=== PATIENT | female | born 1965 | race Caucasian/White ===

== ENCOUNTER 2018-09-28 19:17 | Emergency (ER) | payer OTHER ==
[2018-09-28 19:27] VITALS: BP 147/102; PULSE 81; TEMP 98.4; BMI 21.7
--- NOTE | 2018-09-28 19:30 | PDOC ---
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 Pt states she went to urgent care 3 days ago with normal lab results/urine test. Pt states she has never had these symptoms before, and there are no alleviating or exacerbating factors. Pt denies any recent fevers/chills, headache, vision changes, syncope, chest pain, palpitations, SOB, nausea/vomiting, hematuria, dysuria, vaginal bleeding or discharge, diarrhea/constipation, or leg swelling. Pt has 1 consistent partner () and is not concerned about STI testing. LMP 2 years ago Allergies: NKDA PCP: [facility] Social: Pt denies any cigarette, alcohol, or drug use. Pt denies any recent travel or sick contacts. Surgical: 2 C-sections Family: M-GMA with brain CA; father - prostate CA; no kidney stones in family that she is aware of 09/28/18 20:57 Past History - Travel Traveled outside of the country in the last 30 days: No Close contact w/someone who was outside of country & ill: No - Past Medical History Allergies/Adverse Reactions: Allergies Allergy/AdvReac Type Severity Reaction Status Date / Time aspirin AdvReac Intermediate Verified 09/28/18 19:22 Home Medications: Ambulatory Orders Ranitidine HCl [Zantac] 150 mg PO DAILY PRN 09/28/18 COPD: No GI Disorders: Yes (GERD) - Suicide/Smoking/Psychosocial Hx Smoking Status: No Smoking History: Never smoked Have you smoked in the past 12 months: No Number of Cigarettes Smoked Daily: 0 Information on smoking cessation initiated: No Hx Alcohol Use: No Drug/Substance Use Hx: No Substance Use Type: None Review of Systems - Review of Systems Able to Perform ROS?: Yes Is the patient limited Maltese proficient: No Constitutional: Yes: Weight Stable. No: Chills, Diaphoresis, Fever, Loss of Appetite, Malaise, Weakness HEENTM: No: Blurred Vision, Double Vision, Nose Congestion, Throat Pain, Throat Swelling, Difficulty Swallowing Respiratory: No: Cough, Orthopnea, Shortness of Breath Cardiac (ROS): No: Chest Pain, Edema, Irregular Heart Rate, Lightheadedness, Palpitations, Syncope, Chest Tightness ABD/GI: Yes: See HPI, Abdominal cramping. No: Abdominal Distended, Constipated , Diarrhea, Nausea, Poor Appetite, Poor Fluid Intake, Rectal Bleeding, Vomiting , Tarry Stools : Yes: See HPI, Frequency, Flank Pain, Urgency. No: Burning, Dysuria, Discharge, Hematuria, Incontinence, Pain Musculoskeletal: No: Back Pain, Joint Pain, Muscle Pain, Muscle Weakness Integumentary: No: Rash Neurological: No: Headache, Numbness, Weakness, Unsteady Gait, Dizziness Psychiatric: No: Sleep Pattern Change, Change in Appetite Endocrine: No: Increased Urine, Change in Weight Hematologic/Lymphatic: No: Anemia, Blood Clots, Easy Bleeding, Easy Bruising All Other Systems: Reviewed and Negative *Physical Exam - Vital Signs Last Vital Signs Temp Pulse Resp BP Pulse Ox 98.4 F 81 18 147/102 H 96 09/28/18 19:24 09/28/18 19:24 09/28/18 19:24 09/28/18 19:24 09/28/18 19:24 - Physical Exam Comments: Vitals stable, pt afebrile. Pt in NAD, normal body habitus. Pt alert and oriented x3. traffic incident management manager generally intact, muscular strength and sensation intact. No midline spinal tenderness, step-offs, or crepitus. Head normocephalic, atraumatic. Eyes PERRLA, EOMI. Oropharynx without erythema or exudates, no LAD b/l. No nasal congestion, hearing intact. Clear heart sounds, S1/S2, no JVD, b/l pedal edema, or heart murmur. Clear lung sounds, no respiratory distress, wheezes, crackles, or accessory muscle use. +lower abdomen TTP, worst in suprapubic area, no rebound, no guarding. +L CVA TTP. Abdomen soft, non-distended, and with normoactive bowel sounds. Skin without jaundice or rash. Pelvic exam performed by Dr Olea: no CMT, no vaginal discharge or blood in canal. No adnexal TTP. +posterior prolapse in vaginal canal. 09/28/18 21:04 ED Treatment Course - LABORATORY CBC & Chemistry Diagram: 09/28/18 20:00 09/28/18 20:00 Medical Decision Making - Medical Decision Making Pt was seen at bedside, also will be seen by attending Dr. Esparza. Pt presenting with lower abdominal/pelvic pressure, pelvic exam consistent with uterine prolapse. Will evaluate for UTI, basic labs to check for infection, renal function, will send urine culture. Provided 1 L IV NS and 1 g ofirmev for improvement of pain and hydration. Will continue to reassess pt and monitor for symptomatic improvement. 09/28/18 21:05 UA negative for infection. Culture pending CBC and CMP WNL Symptoms likely 2/2 to uterine prolapse, needs to f/u with HAZARDOUS MATERIALS DRIVER for evaluation. Pt can follow-up with PCP and habitat biologist (referral provided). Strict return precautions provided with pt understanding. 09/28/18 21:06 *DC/Admit/Observation/Transfer Diagnosis at time of Disposition: Pelvic prolapse Qualifiers: Prolapse type: unspecified female genital prolapse Qualified Code(s): N81.9 - Female genital prolapse, unspecified - Discharge Dispostion Disposition: HOME Condition at time of disposition: Stable Decision to Admit order: No - Referrals Referrals: Ana La MD [Staff Physician] - - Patient Instructions Printed Discharge Instructions: DI for Uterine Prolapse Additional Instructions: You were seen in the ER today for lower abdominal pressure. The results of your labs today were normal, but your exam showed some prolapse of your uterus into your vagina. Please follow-up with your primary care doctor and REVENUE ACCOUNTANT within 1- 2 days to discuss your visit and make sure your symptoms have improved. Please return to the ER if you have any worsening pain, development of fevers or chills , vaginal discharge or bleeding, loss of consciousness, inability to tolerate food or fluids, or any other concerns. - Post Discharge Activity Forms/Work/School Notes: Back to Work
[2018-09-28] MEDS ORDERED: SODIUM CHLORIDE 1,000 ML IV STA (19:58)
[2018-09-28] MEDS ORDERED: ACETAMINOPHEN 1000 MG/100 ML VIAL (NON FORMULARY) IVPB ONE (19:58)
[2018-09-28] MEDS ORDERED: ACETAMINOPHEN INJECTION 100 ML IVPB ONE (20:05)
[2018-09-28 20:16] LABS: BASO % 0.7 % (0-2.0); EOS % 1.1 % (0-4.5); HEMATOCRIT 40.5 % (32.4-45.2); HEMOGLOBIN 13.5 GM/dl (10.7-15.3); LYMPH % 36.7 % (8-40); MCH 29.4 pg (25.7-33.7); MCHC 33.3 g/dl (32.0-36.0); MEAN CELL VOLUME 88.3 fl (80-96); MEAN PLT VOLUME 8.1 fl (7.5-11.1); MONO % 4.2 % (3.8-10.2); NEUT % 57.3 % (42.8-82.8); PLATELET COUNT 327 K/MM3 (134-434); RBC 4.59 M/mm3 (3.60-5.2); RDW 12.4 % (11.6-15.6); WHITE BLOOD COUNT 6.9 K/mm3 (4.0-10.8)
[2018-09-28 20:24] LABS: ALBUMIN 4.1 g/dl (3.4-5.0); BILIRUBIN,TOTAL 0.3 mg/dl (0.2-1); CALCIUM 9.1 mg/dl (8.5-10); CREATININE 0.7 mg/dl (0.55-1.3); POTASSIUM 4.1 mmol/L (3.5-5.1); TOT PROT 6.5 g/dl (6.4-8.2)
--- NOTE | 2018-09-28 20:42 | PDOC ---
Documentation entered by Gilbert Lloyd SCRIBE, acting as scribe for Bakari Schmitt MD. Bakari Schmitt MD: This documentation has been prepared by the Gabino jurado Aiswarya, SCRIBE, under my direction and personally reviewed by me in its entirety. I confirm that the documentation accurately reflects all work, treatment, procedures, and medical decision making performed by me. Attending Attestation - Resident Resident Name: DelmisYadira - ED Attending Attestation I have performed the following: I have examined & evaluated the patient, The case was reviewed & discussed with the resident, I agree w/resident's findings & plan, Exceptions are as noted - HPI HPI: 09/28/18 20:22 The patient is a 53 year old female, with no significant PMH, who presents to the emergency department with left flank pain that began last night. The patient states she endorses associated symptoms of urinary urgency and frequency with a high volume of urine yesterday. She also mentions left flank pain has radiated to the suprapubic region today. The patient denies chest pain , shortness of breath, headache and dizziness.Denies fever, chills, nausea, vomit, diarrhea and constipation. Denies dysuria and hematuria. PAST MEDICAL HISTORY: no significant history PAST SURGICAL HISTORY: no significant history FAMILY HISTORY: no pertinent history SOCIAL HISTORY: Pt lives with family and is employed. MEDICATIONS: reviewed ALLERGIES: As per nursing notes Adult ROS General: No fevers or chills, no weakness, no weight loss HEENT: No change in vision. No sore throat,. No ear pain CardioVascular: No chest pain or shortness of breath Respiratory:No cough, or wheezing. Gastrointestinal: no nausea, vomiting, diarrhea or constipation, No rectal bleeding Genitourinary: +frequency +urgency. No dysuria, hematuria. Musculoskeletal: No joint or muscle pain or swelling Neurologic: No headache, vertigo, dizziness or loss of consciousness Psychiatric: nor depression Skin: No rashes or easy bruising Endocrine: no increased thirst or abnormal weight change Allergic: no skin or latex allergy All other systems reviewed and normal - Physicial Exam PE: 09/28/18 20:22 GENERAL: The patient is awake, alert, and fully oriented, in no acute distress. HEAD: Normal with no signs of trauma. EYES: Pupils equal, round and reactive to light, extraocular movements intact, sclera anicteric, conjunctiva clear. Abdomen: +Mild discomfort and pressure to the suprapubic area. No CVA or flank tenderness. Pelvic: +Posteriorly vaginal wall prolapse to the level of the vaginal opening. Anterior vaginal wall weakening with downward bladder pressure. No cervical tenderness or abnormal vaginal discharge EXTREMITIES: Normal range of motion, no edema. NEUROLOGICAL: Normal speech, normal gait. PSYCH: Normal mood, normal affect. SKIN: Warm, Dry, normal turgor, no rashes or lesions noted. - Medical Decision Making 09/28/18 20:41 Assessment and plan: This is a 53-year-old female who comes in complaining of pelvic pressure/discomfort. On my exam patient did have a posterior wall prolapse as well as some mild anterior vaginal wall prolapse. I recommended that she follow up with her OB for referral to your educational manager for possible repair of the prolapse. I suspect that is the prolapse that is causing the pressure sensation. Patient otherwise had a negative urine and normal CBC and comp. Patient discharged home will follow-up with her educational manager.
== END 2018-09-28 20:53 | disposition home or self-care (01) ==
LOC: FER 19:17
PROC: 3E033NZ Introduction of Analgesics, Hypnotics, Sedatives into Peripheral Vein, Percutaneous Approach (ICD-10-PCS; principal; 2018-09-28)
PROC: 3E0337Z Introduction of Electrolytic and Water Balance Substance into Peripheral Vein, Percutaneous Approach (ICD-10-PCS; 2018-09-28)
DX: N81.9 Female genital prolapse, unspecified (principal)
CPT/HCPCS: 36415; 80053; 81003; 84703; 85025; 87086; 99285-25; J0131; J7030